=== PATIENT | female | born 1980 | race Caucasian/White ===

== ENCOUNTER 2019-04-22 23:11 | Emergency (ER) | payer OTHER ==
[~2019-04-22] VITALS: Ht 188 cm; Wt 158.8 kg
[2019-04-22] MEDS ORDERED: ASPIRIN 81 MG TAB.CHEW PO ONE (23:45)
[2019-04-22] MEDS ORDERED: IV NORMAL SALINE 1,000ML 1,000 ML IV SCH (23:45)
--- NOTE | 2019-04-22 23:50 | PHYS DOC ---
Past History Past Medical History: Hypertension, Hypothyroid, Other Additional Past Medical Histor: osteoarthritis Additional Past Surgical Histo: bilateral hip surgery Smoking: Cigarettes Alcohol Use: None Drug Use: None Adult General HPI HPI Patient is a 38-year-old female presents with blurred vision, feeling like her hearing is closing down, lightheadedness, racing heart rate. This started approximately 2 hours prior to arrival worse with standing up, no worsening with exertion. No chest pain. Patient was recently taken off of her lisinopril and placed on losartan with hydrochlorothiazide. Other than standing up, nothing seems to make the symptoms worse, nothing seems to make them better. No nausea or vomiting. No diaphoresis.[] Review of Systems Review of Systems Constitutional: Denies fever or chills [] Eyes: Denies change in visual acuity, redness, or eye pain [] HENT: Denies nasal congestion or sore throat [] Respiratory: Denies cough or shortness of breath [] Cardiovascular: No additional information not addressed in HPI [] GI: Denies abdominal pain, nausea, vomiting, bloody stools or diarrhea [] : Denies dysuria or hematuria [] Musculoskeletal: Denies back pain or joint pain [] Integument: Denies rash or skin lesions [] Neurologic: Denies headache, focal weakness or sensory changes [] Endocrine: Denies polyuria or polydipsia [] All other systems were reviewed and found to be within normal limits, except as documented in this note. Current Medications Current Medications Current Medications Medications (Trade) Dose Ordered Sig/[facility] Start Time Stop Time Status Last Admin Dose Admin Aspirin (Children'S Aspirin) 324 mg 1X ONCE 04/22/19 23:45 04/22/19 23:46 UNV Physical Exam Physical Exam Constitutional: Well developed, well nourished, no acute distress, non-toxic appearance. [] HENT: Normocephalic, atraumatic, bilateral external ears normal, oropharynx moist, no oral exudates, nose normal. [] Eyes: PERRLA, EOMI, conjunctiva normal, no discharge. [] Neck: Normal range of motion, no tenderness, supple, no stridor. [] Cardiovascular:Heart rate is tachycardic with a regular rhythm, no murmur [] Lungs & Thorax: Bilateral breath sounds clear to auscultation [] Abdomen: Bowel sounds normal, soft, no tenderness, no masses, no pulsatile masses. [] Skin: Warm, dry, no erythema, no rash. [] Back: No tenderness, no CVA tenderness. [] Extremities: No tenderness, no cyanosis, no clubbing, ROM intact, no edema. [] Neurologic: Alert and oriented X 3, normal motor function, normal sensory function, no focal deficits noted. [] Psychologic: Affect anxious, increased word velocity, judgement normal. [] EKG EKG EKG shows a sinus rhythm at 99 bpm, normal axis, QTC is prolonged at 486 ms, no ST elevation. Interpreted by me at 0024. No old EKG available for comparison.[] Radiology/Procedures Radiology/Procedures PROCEDURE: CT HEAD WO CONTRAST CT scan of the head without contrast 04/22/2019 Clinical History: Headache and visual changes. Technique: Unenhanced, contiguous, 5 mm axial sections were obtained through the head. One or more of the following individualized dose reduction techniques were utilized for this study: 1. Automated exposure control. 2. Adjustment of the mA and/or kV according to patient size. 3. Use of iterative reconstruction technique. Findings: The ventricles and sulci are within normal limits in size and configuration. No focal area of abnormal attenuation is seen involving the brain parenchyma. No extra-axial fluid collection is seen. No skull fracture is seen. Impression: Negative study. Chest x-ray shows no infiltrate, no effusion, no pneumothorax[] Course & Med Decision Making Course & Med Decision Making Pertinent Labs and Imaging studies reviewed. (See chart for details) ED course: Patient arrived, was placed in bed, and tolerated exam well. IV access was established, she was given IV fluids which did improve her heart rate. She was transported to and from radiology with any complications. After the return of the low potassium, she was given oral potassium supplementation which she tolerated well. After the return of the laboratory and imaging studies, these were discussed with the patient who voiced understanding. All questions were answered. She was discharged in improved condition. Medical decision making: Patient with symptoms that improved with IV fluids as well as potassium. It is noted that her PCO2 was low despite the normal pH on her blood gas, given her speech believe there to be some anxiety component that may have triggered all of these symptoms as well. The symptoms may also be due to amphetamine/methamphetamine use/abuse as noted on her urine drug screen. She also has a urinary tract infection that will be treated as an outpatient. There is no evidence of systemic toxicity. There is no evidence of intracranial mass or bleed. No evidence of additional significant electrolyte abnormality. No evidence of anemia. Thyroid studies are in progress.[] Dragon Disclaimer Dragon Disclaimer This electronic medical record was generated, in whole or in part, using a voice recognition dictation system. Departure Departure: Impression: Primary Impression: Hypokalemia Additional Impression: Dehydration Disposition: 01 HOME, SELF-CARE Condition: IMPROVED Referrals: [facility] [facility] (PCP) Follow-up in 2 days Patient Instructions: Dehydration, Adult, Hypokalemia Additional Instructions: Drink plenty of fluids. Take medication as prescribed. Do not take any drugs or medicines that are not prescribed for you. Follow-up with your regular doctor in 2 days. Return to the ER if worsening symptoms or any other concerns. Scripts Cephalexin (KEFLEX) 500 Mg Capsule 500 MG PO TID for UTI for 10 Days, #30 CAP Prov: TYSON ALEJO DO 04/23/19 Potassium Chloride (KLOR-CON M20) 20 Meq Tab.er.prt 2 TAB PO DAILY for low potassium, #20 TAB 0 Refills Prov: TYSON ALEJO DO 04/23/19 Problem Qualifiers TYSON ALEJO DO Apr 22, 2019 23:50
[2019-04-23 00:11] LABS: BASO # 0.1 x10^3/uL (0.0-0.2); BASO % 1 % (0-3); EOS # 0.4 x10^3/uL (0.0-0.7); EOS % 4 % (0-3); HEMATOCRIT 38.1 % (36.0-47.0); HEMOGLOBIN 12.5 g/dL (12.0-15.5); LYMPH # 1.8 x10^3/uL (1.0-4.8); LYMPH % 19 % (24-48); MEAN CORPUSCULAR HEMOGLOBIN 27 pg (25-35); MEAN CORPUSCULAR HGB CONC 33 g/dL (31-37); MEAN CORPUSCULAR VOLUME 83 fL (79-100); MONO # 0.8 x10^3/uL (0.0-1.1); MONO % 9 % (0-9); NEUT # 6.4 x10^3uL (1.8-7.7); NEUT % 67 % (31-73); PLATELET COUNT 320 x10^3/uL (140-400); RED BLOOD COUNT 4.59 x10^6/uL (3.50-5.40); RED CELL DISTRIBUTION WIDTH 13.7 % (11.5-14.5); WHITE BLOOD COUNT 9.5 x10^3/uL (4.0-11.0)
--- NOTE | 2019-04-23 00:20 | RAD ---
CT scan of the head without contrast 04/22/2019 Clinical History: Headache and visual changes. Technique: Unenhanced, contiguous, 5 mm axial sections were obtained through the head. One or more of the following individualized dose reduction techniques were utilized for this study: 1. Automated exposure control. 2. Adjustment of the mA and/or kV according to patient size. 3. Use of iterative reconstruction technique. Findings: The ventricles and sulci are within normal limits in size and configuration. No focal area of abnormal attenuation is seen involving the brain parenchyma. No extra-axial fluid collection is seen. No skull fracture is seen. Impression: Negative study. Electronically signed by: Asif Galloway MD (04/23/2019 12:17 AM) [id number]
[2019-04-23 00:33] LABS: ALBUMIN 4.2 g/dL (3.4-5.0); ALBUMIN/GLOBULIN RATIO 1.2 (1.0-1.7); CALCIUM 9.2 mg/dL (8.5-10.1); GFR 61.7; TOTAL BILIRUBIN 0.4 mg/dL (0.2-1.0); TOTAL PROTEIN 7.7 g/dL (6.4-8.2)
[2019-04-23 00:42] LABS: POTASSIUM 2.9 mmol/L (3.5-5.1)
[2019-04-23 00:43] LABS: BGAS PH 7.43 (7.35-7.45)
[2019-04-23] MEDS ORDERED: POTASSIUM CHLORIDE 20 MEQ TABLET.ER. PO ONE (01:00)
[2019-04-23 01:27] LABS: BACTERIA,URINE FEW /HPF (0-FEW); BARBITURATES NEG (NEG); BENZODIAZEPINES NEG (NEG); BILIRUBIN,URINE NEG (NEG); CANNABINOIDS NEG (NEG); CLARITY,URINE CLEAR; COCAINE NEG (NEG); COLOR,URINE YELLOW; GLUCOSE,URINE NEG (NEG); METHADONE NEG (NEG); NITRITE,URINE NEG (NEG); OPIATES NEG (NEG); PHENCYCLIDINE NEG (NEG); RBC,URINE 0 /HPF (0-2); SQUAMOUS EPITHELIAL CELL,UR FEW /LPF; UROBILINOGEN,URINE 0.2 mg/dL (0.2 mg/dL); WBC,URINE 20-40 /HPF (0-4)
[2019-04-23 01:29] LABS: AMPHETAMINE/METHAMPHETAMINE POS (NEG)
[2019-04-23] MEDS ORDERED: POTA20TA4 PO (01:36)
[2019-04-23] MEDS ORDERED: CEPH-264 PO (01:36)
[2019-04-23 01:45] VITALS: BP 151/79
--- NOTE | 2019-04-23 01:56 | RAD ---
PA and lateral chest radiographs 04/22/2019 Clinical History: Chest pain. PA and lateral digital radiographs of the chest were obtained. No previous studies are available for comparison. The cardiac and mediastinal silhouettes are within normal limits in size and configuration. No pulmonary infiltrate is seen. No pleural effusion or pneumothorax is noted. Degenerative changes are seen involving the thoracic spine. Impression: No radiographic evidence of active cardiopulmonary disease. Electronically signed by: Asif Galloway MD (04/23/2019 1:53 AM) [id number]
== END 2019-04-23 01:45 | disposition home or self-care (01) ==
LOC: ER 23:11
DX: E87.6 Hypokalemia (principal); E86.0 Dehydration; H53.8 Other visual disturbances; I10 Essential (primary) hypertension; E03.9 Hypothyroidism, unspecified; F17.210 Nicotine dependence, cigarettes, uncomplicated; M19.90 Unspecified osteoarthritis, unspecified site
CPT/HCPCS: 36415; 70450; 71046; 80053; 80307; 81001; 82803; 83735; 83880; 84443; 84484; 85025; 85610; 85730; 87086; 93005; 96360; 99285-25; J7030